=== PATIENT | female | born 1995 | race Caucasian/White ===

== ENCOUNTER 2019-04-10 20:55 | Emergency (ER) | payer MEDICAID ==
[~2019-04-10] VITALS: Ht 162.6 cm; Wt 81.8 kg
[2019-04-10 21:31] LABS: BASOPHIL % 0.5 % (0-2); PLATELET COUNT 253 x10^3mcL (130-400)
[2019-04-10 21:36] LABS: RED CELL DISTRIBUTION WIDTH 18.5 % (11.5-14.5)
[2019-04-10 21:44] LABS: CALCIUM 8.6 mg/dL (8.5-10.1); CARBON DIOXIDE 27.2 mmol/L (21-32); CHLORIDE SERUM 106 mmol/L (98-107); CREATININE SERUM 0.8 mg/dL (0.6-1.0); GFR1 > 60 mL/min; GLUCOSE SERUM 84 mg/dL (74-106); POTASSIUM SERUM 3.8 mmol/L (3.5-5.1); SODIUM SERUM 142 mmol/L (136-145)
[2019-04-10 21:48] LABS: ALBUMIN 4.1 g/dL (3.4-5.0); ALKALINE PHOSPHATASE 54 U/L (46-116); ALT/SGPT 10 U/L (14-59); AST/SGOT 12 U/L (15-37); BILIRUBIN TOTAL 0.46 mg/dL (0.20-1.00); LIPASE 87 IU/L (73-393); TOTAL PROTEIN, SERUM 7.7 g/dL (6.4-8.2)
[2019-04-10 23:43] VITALS: BP 126/80
== END 2019-04-10 23:43 | disposition home or self-care (01) ==
LOC: ED 20:55
DX: D64.9 Anemia, unspecified (principal); R19.7 Diarrhea, unspecified; R10.84 Generalized abdominal pain; R11.10 Vomiting, unspecified; R63.0 Anorexia; R50.9 Fever, unspecified; G47.00 Insomnia, unspecified
CPT/HCPCS: J2405; J7030

== ENCOUNTER 2019-04-11 14:30 | Emergency (ER) | payer MEDICAID ==
[~2019-04-11] VITALS: Ht 162.6 cm; Wt 81.2 kg
[2019-04-11 16:18] LABS: CHLORIDE SERUM 105 mmol/L (98-107); CREATININE SERUM 0.9 mg/dL (0.6-1.0); GFR1 > 60 mL/min; GLUCOSE SERUM 132 mg/dL (74-106); POTASSIUM SERUM 3.6 mmol/L (3.5-5.1); SODIUM SERUM 144 mmol/L (136-145)
[2019-04-11 16:23] LABS: ALBUMIN 4.3 g/dL (3.4-5.0); ALKALINE PHOSPHATASE 55 U/L (46-116); ALT/SGPT 14 U/L (14-59); AST/SGOT 11 U/L (15-37); BILIRUBIN TOTAL 0.66 mg/dL (0.20-1.00); TOTAL PROTEIN, SERUM 8.2 g/dL (6.4-8.2)
[2019-04-11 16:34] LABS: BASOPHIL % 0.3 % (0-2); PLATELET COUNT 275 x10^3mcL (130-400)
[2019-04-11 16:36] LABS: RED CELL DISTRIBUTION WIDTH 18.6 % (11.5-14.5)
[2019-04-11 17:09] LABS: UA SPECIFIC GRAVITY 1.015 (1.005-1.035); microscopic required? YES; urine erythrocyte 3+ (NEGATIVE)
[2019-04-11 21:42] VITALS: BP 124/81
== END 2019-04-11 21:42 | disposition home or self-care (01) ==
LOC: ED 14:30
PROVIDERS: Emergency Medicine
DX: R11.2 Nausea with vomiting, unspecified (principal); R10.9 Unspecified abdominal pain
CPT/HCPCS: J1630; J2405; J2765; J7030